=== PATIENT | male | born 1985 | race Caucasian/White ===

== ENCOUNTER 2017-01-31 08:47 | Emergency (ER) | payer OTHER | END 2017-01-31 09:00 | disposition home or self-care (01) | LOC: ER 08:47 | DX: T23.251A Burn of second degree of right palm, initial encounter (principal); F17.200 Nicotine dependence, unspecified, uncomplicated; X08.8XXA Exposure to other specified smoke, fire and flames, initial encounter | CPT/HCPCS: 90471; 90714; 99283; A9270-GY ==